=== PATIENT | male | born 1945 | race Caucasian/White ===

== ENCOUNTER → 2019-06-21 | Outpatient (CLI) | payer MEDICARE, BC | END | disposition home or self-care (01) | LOC: LAB SHORT 08:49 → PLD 08:49 | DX: L30.8 Other specified dermatitis (principal); L98.9 Disorder of the skin and subcutaneous tissue, unspecified | CPT/HCPCS: 88305; 88312 ==

== ENCOUNTER → 2019-06-21 | Outpatient (CLI) | payer MEDICARE, BC | END | disposition home or self-care (01) | LOC: LAB SHORT 16:30 → LAB 16:30 | DX: L08.0 Pyoderma (principal) | CPT/HCPCS: 87070; 87077; 87147; 87186; 87205 ==

== ENCOUNTER 2019-10-01 06:28 | Emergency (ER) | payer MEDICARE, BC ==
[~2019-10-01] VITALS: Ht 188 cm; Wt 138.8 kg
[2019-10-01] MEDS ORDERED: FENO160 PO (07:00)
[2019-10-01] MEDS ORDERED: Bumetanide1 MG (07:01)
[2019-10-01] MEDS ORDERED: LOSA25 (07:01)
[2019-10-01] MEDS ORDERED: POTCHL20ER (07:02)
[2019-10-01] MEDS ORDERED: ALLOPURINOL100 MG (07:03)
[2019-10-01 07:39] LABS: BASOPHILS ABSOLUTE AUTO 0.12 K/mm3 (0.00-0.23); BASOPHILS PERCENT AUTO 2 % (0-2); EOSINOPHILS ABSOLUTE AUTO 0.53 K/mm3 (0.00-0.68); EOSINOPHILS PERCENT AUTO 10 % (0-6); Hematocrit 43.4 % (37.0-53.0); Hemoglobin 12.9 g/dL (13.5-17.5); IMMATURE GRAN ABSOLUTE AUTO 0.02 K/mm3 (0.00-0.10); IMMATURE GRAN PERCENT AUTO 0 % (0-1); LYMPHOCYTES ABSOLUTE AUTO 1.21 K/mm3 (0.84-5.20); LYMPHOCYTES PERCENT AUTO 22 % (21-46); MONOCYTES ABSOLUTE AUTO 0.45 K/mm3 (0.16-1.47); MONOCYTES PERCENT AUTO 8 % (4-13); Mean Corpuscular HGB 28.7 pg (26.0-34.0); Mean Corpuscular HGB Conc 29.7 g/dL (31.5-36.5); Mean Corpuscular Volume 97 fL (80-100); Mean Platelet Volume 10.4 fL (9.1-12.4); NEUTROPHILS ABSOLUTE AUTO 3.18 K/mm3 (1.96-9.15); NEUTROPHILS PERCENT AUTO 58 % (41-73); Platelet Count 207 K/mm3 (150-400); RDW Coefficient Variation 16.3 % (11.7-14.2); Red Blood Cell Count 4.49 M/mm3 (4.30-5.90); White Blood Cell Count 5.51 K/mm3 (4.00-11.30)
[2019-10-01 07:52] LABS: Albumin, Blood 3.2 g/dL (3.4-5.0); Albumin/Globulin Ratio 0.7 (0.8-1.8); Bilirubin, Total 0.3 mg/dL (0.1-1.0); Bun/Creatinine Ratio 37.3 (12.0-20.0); Creatinine, Blood 1.34 mg/dL (0.60-1.20); Globulin, Blood 4.7 g/dL (2.2-4.0); Potassium, Blood 4.4 mmol/L (3.5-5.5); Total Protein, Blood 7.9 g/dL (6.4-8.2)
[2019-10-01] MEDS ORDERED: Norco 5-325 Ta1 EACH PO (10:24)
== END 2019-10-01 11:23 | disposition home or self-care (01) ==
LOC: ER 06:28
PROVIDERS: Emergency Medicine
DX: E11.622 Type 2 diabetes mellitus with other skin ulcer (principal); L97.829 Non-pressure chronic ulcer of other part of left lower leg with unspecified severity; I10 Essential (primary) hypertension; M10.9 Gout, unspecified; Z87.891 Personal history of nicotine dependence
CPT/HCPCS: 36415; 80053; 85025; 99283; A9270-GY

== ENCOUNTER 2019-10-25 19:52 | Emergency (ER) | payer MEDICARE, BC ==
[~2019-10-25] VITALS: Ht 188 cm; Wt 134.7 kg
[~2019-10-25 19:52] MED LIST: ALLOPURINOL100 MG; Bumetanide1 MG; FENO160 PO; LOSA25; Norco 5-325 Ta1 EACH PO; POTCHL20ER
[2019-10-25 20:13] LABS: BASOPHILS ABSOLUTE AUTO 0.05 K/mm3 (0.00-0.23); BASOPHILS PERCENT AUTO 1 % (0-2); EOSINOPHILS ABSOLUTE AUTO 0.04 K/mm3 (0.00-0.68); EOSINOPHILS PERCENT AUTO 0 % (0-6); Hematocrit 39.2 % (37.0-53.0); Hemoglobin 12.3 g/dL (13.5-17.5); IMMATURE GRAN PERCENT AUTO 2 % (0-1); LYMPHOCYTES ABSOLUTE AUTO 1.82 K/mm3 (0.84-5.20); LYMPHOCYTES PERCENT AUTO 17 % (21-46); MONOCYTES ABSOLUTE AUTO 0.43 K/mm3 (0.16-1.47); MONOCYTES PERCENT AUTO 4 % (4-13); Mean Corpuscular HGB 29.1 pg (26.0-34.0); Mean Corpuscular HGB Conc 31.4 g/dL (31.5-36.5); Mean Corpuscular Volume 93 fL (80-100); Mean Platelet Volume 10.1 fL (9.1-12.4); NEUTROPHILS ABSOLUTE AUTO 8.18 K/mm3 (1.96-9.15); NEUTROPHILS PERCENT AUTO 76 % (41-73); NRBC ABSOLUTE 0.06 K/mm3 (0.00-0.02); NRBC Auto 0.6 /100 WBC (0.0-0.2); Platelet Count 253 K/mm3 (150-400); RDW Coefficient Variation 16.9 % (11.7-14.2); RDW Standard Deviation 56.7 fL (35.1-46.3); Red Blood Cell Count 4.22 M/mm3 (4.30-5.90); White Blood Cell Count 10.72 K/mm3 (4.00-11.30)
[2019-10-25 20:24] LABS: PCO2 Arterial 49.7 mmHg (35-45); PO2 Arterial 58.1 mmHg (80-100); pH Blood Arterial 7.37 (7.35-7.45)
[2019-10-25 20:30] LABS: International Normalized Ratio 1.02; Prothrombin Time Results 10.8 Sec (9.7-11.5)
[2019-10-25 20:31] LABS: Alanine Aminotransfer (ALT/SGP 22 U/L (12-78); Albumin/Globulin Ratio 0.8 (0.8-1.8); Alk Phos 35 U/L (50-136); Anion Gap 7 mmol/L (6-16); Aspartate Aminotrans (AST/SGOT 20 U/L (12-37); Bilirubin, Total 0.3 mg/dL (0.1-1.0); Blood Urea Nitrogen 53 mg/dL (8-24); Bun/Creatinine Ratio 32.5 (12.0-20.0); CO2, Blood 27 mmol/L (21-32); Calcium, Blood 8.8 mg/dL (8.5-10.1); Chloride, Blood 106 mmol/L (98-108); Creatinine, Blood 1.63 mg/dL (0.60-1.20); Globulin, Blood 3.9 g/dL (2.2-4.0); Glomerular Filtration Rate 44 (60-); Glucose, Blood 202 mg/dL (70-99); Potassium, Blood 4.7 mmol/L (3.5-5.5); Sodium, Blood 140 mmol/L (136-145); Total Protein, Blood 6.9 g/dL (6.4-8.2); Troponin I 0.041 ng/mL (0.000-0.040)
[2019-10-25] MEDS ORDERED: Klor-Con 1010 MEQ PO (23:05)
[2019-10-25] MEDS ORDERED: ALLO300 PO (23:06)
[2019-10-25] MEDS ORDERED: ANORO ELLIPTA1 EACH INH (23:06)
[2019-10-25] MEDS ORDERED: Fenofibrate200 MG PO (23:06)
[2019-10-25] MEDS ORDERED: LOSARTAN POTASS25 M2 PO (23:07)
[2019-10-25] MEDS ORDERED: Bumetanide1 MG PO (23:07)
[2019-10-27] MEDS ORDERED: Ventolin/Prove6.7 GM INH (10:53)
[2019-10-27] MEDS ORDERED: Fluocinonide15 GM TOP (10:55)
[2019-10-27] MEDS ORDERED: TRIDERM28.4 GM TOP (10:56)
[2019-10-27] MEDS ORDERED: ALBU2.5V5 INH (10:56)
[2019-10-27] MEDS ORDERED: QVAR REDIHALE10.6 G1 INH (10:57)
== END 2019-10-26 01:07 | disposition home or self-care (01) ==
LOC: ER 19:52
PROVIDERS: Emergency Medicine
DX: I71.3 Abdominal aortic aneurysm, ruptured (principal); I95.9 Hypotension, unspecified; I10 Essential (primary) hypertension; E11.9 Type 2 diabetes mellitus without complications; J44.9 Chronic obstructive pulmonary disease, unspecified; Z79.899 Other long term (current) drug therapy; Z87.891 Personal history of nicotine dependence
CPT/HCPCS: 36600; 71045; 71275; 74175; 76775; 80053; 82803; 83880; 84484; 85025; 85610; 85730; 86850; 86900; 86901; 86923; 93005; 93010; 94644; 96374-59; 99285-25; J1100; J7030; Q9967

== ENCOUNTER 2019-10-26 06:30 | Observation (INO) | payer MEDICARE, BC ==
[~2019-10-26] VITALS: Ht 188 cm; Wt 134.3 kg
[~2019-10-26 06:30] MED LIST changes: +ALLO300 PO; +ANORO ELLIPTA1 EACH INH; +Bumetanide1 MG PO; +Fenofibrate200 MG PO; +Klor-Con 1010 MEQ PO; +LOSARTAN POTASS25 M2 PO
--- NOTE | 2019-10-26 17:02 | NUR ---
PT ADMITTED TO ROOM 331 FROM ED AT 1345 VIA STRETCHER. PT A/O, STATES DISCOMFORT IN ABD FROM PRESSURE AND "FEELING" GASSY AND BLOATED. WILL MEDICATE FOR PAIN AND DISCOMFORT AND CALL MD FOR ANTIGAS MED. PT ORIENTED TO ROOM AND SET UP. GIVEN ICE WATER AND ICE CHIPS AND DOENSNT WANT FOOD RIGHT NOW. DENIES NAUSEA. GOOD FAMILY FRIEND AT THE BEDSIDE.
--- NOTE | 2019-10-26 17:05 | NUR ---
SUMMARY- PT TOLERATING SIPS AND CHIPS, PAIN CONTROLLED WITH ROXANOL AND FENT PATCH PLACED. DENIES NAUSEA. C/O GASSY BLOATING AND STATES HE TAKES [place] AT HOME, RECEIVED ORDER FOR SIMETHICONE AND PT STATES MIN RELEIF OF BLOATING. FRIENDS VISITING ON/OFF, PT NOW RESTING COMFORTABLY WITH EYES CLOSED. RESP E/U, OXYMIZER 6L. CALL LIGHT IN REACH.
--- NOTE | 2019-10-26 21:34 | NUR ---
COMFORT: PATIENT IS RESTING IN BED, A&O X3. PATIENT REPORTS IMPROVEMENT IN PAIN AND PRESSURE BUT IS UNABLE TO GIVE A NUMBER. PATIENT IS CALM AND RELAXED WITH EYE'S CLOSED UPON ENTERING ROOM. BED ALSRM IS ON AND CALL MORALES IS WITHIN REACH.
--- NOTE | 2019-10-26 21:37 | NUR ---
COMFORT: PATIENT IS FEELING ANXIOUS AND WOULD LIKE TO SLEEP, PRN ATIVAN 1 MG IS GIVEN. PATIENT WAS ABLE TO STAND AT BEDSIDE WITH ASSIST OF 2 QAND A WALKER TO VOID, CONTINUES TO REFUSE CARRILLO AT THIS TIME.
--- NOTE | 2019-10-26 21:39 | NUR ---
COMFORT: PATIENT HAS GOOD EFFECT FROM ATIVAN AND IS SLEEPING. RESPIRATIONS ARE AT 16 AND EASY. BED ALRM IS ON AND CALL MORALES IS WITHIN REACH.
--- NOTE | 2019-10-26 22:45 | NUR ---
COMFORT: PATIENT IS ASSITED TO STAND AND VOID AT THE BEDSIDE, ASSIST OF TWO AND WALKER, VOIDED 100ML. PATIENT CONTINUES TO REFUSE NEED OF CARRILLO CATH. REPORTS ABD. PAIN 05/04, ROXICODONE IS GIVEN.
--- NOTE | 2019-10-26 23:16 | NUR ---
COMFORT: PATIENT HAD GOOD EFFECT FROM ROXICODONE AND IS SLEEPING, RESPIRATION ARE EASY AT 18. BED ALARM IS ON AND CALL MORALES IS [place] REACH.
--- NOTE | 2019-10-27 04:11 | NUR ---
COMFORT:PATIENT IS SLEEPING, RESPIRATIONS ARE 16 AND EASY.
--- NOTE | 2019-10-27 04:12 | NUR ---
COMFORT: PATIENT CONTINUES TO SLEEP COMFORTABLY, MINIMAL PO INTAKE THIS SHIFT. PATIENT HAS VOIDED TWICE, NO BM. BED ALARM IS ON AND CALL MORALES IS WITHIN REACH.
--- NOTE | 2019-10-27 07:45 | NUR ---
COMFORT: PATIENT REPORTS SLEEPING VERY WELL, PAIN IS WELL CONTROLED AND NO NAUSEA AT THIS TIME. PATIENT IS REQUESTING JUICE AND WATER AND TOLERATING CLEAR LIQUID DIET WELL, HAS NOT WANTED ANY SOLID FOOD THIS SHIFT. BED ALARM IS ON FOR SAFETY.
[2019-10-27] MEDS ORDERED: Ventolin/Prove6.7 GM INH (10:53)
[2019-10-27] MEDS ORDERED: Fluocinonide15 GM TOP (10:55)
[2019-10-27] MEDS ORDERED: TRIDERM28.4 GM TOP (10:56)
[2019-10-27] MEDS ORDERED: ALBU2.5V5 INH (10:56)
[2019-10-27] MEDS ORDERED: QVAR REDIHALE10.6 G1 INH (10:57)
--- NOTE | 2019-10-27 11:12 | NUR ---
PT ALERT AND ORIENTED AND IN NO DISTRESS.
--- NOTE | 2019-10-27 11:13 | NUR ---
PT VISITING WITH FRIENDS AND DOCTOR. NO DISTRESS NOTED
--- NOTE | 2019-10-27 16:52 | NUR ---
PT STATED HE WAS STARTING TO FEEL SOME ANXIETY. ATIVAN GIVEN PER EMAR. PATIENT IN NO NOTED DISTRESS.
--- NOTE | 2019-10-27 18:06 | NUR ---
Initial spiritual care note: Mr. Canela is quite personable and articulate. He appears to accept that he is nearing end-of-life. Life review facilitated. Regrets expressed. He responded well to gentle certified personal finance counselor and theraputic listening. Art admits he is "on the fence" with regard to God. He is not afraid of however. He has been caring for his who has advanced dementia with the help of their son, Sae. Art reports that he has leif that his son will be able to manage caring for both parents with the help of friends. We had an easy rapport. No concerns presented. Electronics Tech services will remain available.
--- NOTE | 2019-10-27 19:21 | NUR ---
COMFORT: PATIENT IS RESTING IN BED WATCHING TV, REPORTS ONLY BLOATED FEELING AND DENIES NEED OF ANY PAIN MEDICATION AT THIS TIME. BED ALARM IS ON FOR SAFETY AND CALL MORALES IS WITHIN REACH.
--- NOTE | 2019-10-27 20:58 | NUR ---
COMFORT: PATIENT IS RESTING IN BED, CONTINUES TO REPORT BLOATED FEELING AND REPORTS BURPING IS HELPING SOMEWHAT. PATIENT REPORTS NO ACUTE PAIN AND IS A&O X4. FENTANYL PATCH HAS FALLEN OFF AND IS FOUND IN [facility] BED. CALL MORALES IS WITHIN REACH AND BED ALARM IS ON FOR SAFETY.
--- NOTE | 2019-10-27 21:21 | NUR ---
MEDICATION: FENTANYL PATCH IS REPLACED. OLD PATCH WAS PUT INTO THE SHARPS CONTAINER AND WITNESSED BY MASCARA MOLDERRABIA BARROW.
--- NOTE | 2019-10-27 23:52 | NUR ---
COMFORT: PATIENT IS SLEEPING COMFORTABLY, REPIRATIOMS ARE AT 14 AND EASY. CALL MORALES IS WITHIN REACH AND BED ALARM IS ON FOR SAFETY.
--- NOTE | 2019-10-28 00:50 | NUR ---
COMFORT: PATIENT WAS UP TO THE BATHROOM TO VOID AND BECAME SOB. 02 IS INCREASED TO 8 L OXIMIZER AND PO ATIVAN IS GIVEN. EMOTIONAL SUPPORT IS ALSO GIVEN. CALL MORALES IS WITHIN REACH AND BED ALARM IS ON FOR SAFETY.
--- NOTE | 2019-10-28 02:58 | NUR ---
COMFORT: PATIENT IS IN BED WATCHING TV, NO COMPLIANTS OF PAIN OR DISCOMFORT. REPORTS GOOD EFFECT FROM ATIVAN.
--- NOTE | 2019-10-28 06:09 | NUR ---
COMFORT: PATIENT HAD GOOD EFFECT FROM ATIVAN GIVEN FOR SOB. PATIENT IS VERBALIZING ANXIETY OVER HIS WIFES CARE AND THAT HIS SON WILL NEED HELP PROVIDING CARE FOR HER WITH THE PATIENT BEING UNABLE TO ASSIST AT THIS TIME. EMOTIONAL SUPPORT IS GIVEN. BED ALRM REMAINS ON FOR SAFETY.
[2019-10-28] MEDS ORDERED: Ativan1 MG PO (08:41)
[2019-10-28] MEDS ORDERED: Fentanyl1 EACH TOP (08:41)
[2019-10-28] MEDS ORDERED: OXYCODONE10 MG/0.5 SL (08:44)
--- NOTE | 2019-10-28 09:41 | NUR ---
0930 PT HAD IV REMOVED PRIOR TO DISCHARGE TO H[place]PICE [place]. NURSE WENT OVER MEDS WITH PATIENT, PATIENT GIVEN HARD SCRIPTS. DISCHARGE PLANNING TO CALL FOR NURSE TO NURSE. [place] TO COME AT 10 TO ESCORT PT TO [place]. ON HOSPICE SO NO FOLLOW UP .
== END 2019-10-28 10:04 | disposition hospice, inpatient (51) ==
LOC: ER 06:30 → MEDS 06:31
PROVIDERS: ADMIT Hospitalist
DX: Z51.5 Encounter for palliative care (principal); I71.3 Abdominal aortic aneurysm, ruptured; J44.9 Chronic obstructive pulmonary disease, unspecified; E11.9 Type 2 diabetes mellitus without complications; M10.9 Gout, unspecified; E78.5 Hyperlipidemia, unspecified; E78.00 Pure hypercholesterolemia, unspecified; E66.01 Morbid (severe) obesity due to excess calories; Z68.38 Body mass index [BMI] 38.0-38.9, adult; Z99.81 Dependence on supplemental oxygen; Z79.899 Other long term (current) drug therapy; Z66 Do not resuscitate
CPT/HCPCS: 82947; 94640; 94760; 96374; 96375; 96376; 99285-25; G0378; J2405; J3010